=== PATIENT | male | born 1965 | race Hispanic/Latino ===

== ENCOUNTER 2017-08-14 01:31 | Emergency (ER) | payer BC ==
[2017-08-14 02:00] VITALS: BMI 26.5
[2017-08-14 02:02] VITALS: TEMP 98.4
[2017-08-14] MEDS ORDERED: Lidocaine 2% Inj (20ml) INFIL ONE (02:11)
[2017-08-14] MEDS ORDERED: Phenylephrine 10 mg/ml Inj ONE (02:20)
[2017-08-14] MEDS ORDERED: Lidocaine 1% MPF (30 ml) Inj ONE (02:20)
[2017-08-14 04:19] VITALS: BP 165/80; PULSE 83; RESP 18; O2SAT 99
--- NOTE | 2017-08-14 05:04 | ED PDOC ---
HPI: Male Pain Time Seen by Provider: 08/14/17 01:50 Chief Complaint (Nursing): Male Genitourinary Chief Complaint (Provider): Male Genitourinary History Per: Patient History/Exam Limitations: no limitations Onset/Duration Of Symptoms: Hrs Current Symptoms Are (Timing): Still Present Associated Symptoms: denies: Fever, Back Pain Additional Complaint(s): Eddie Charlton is a 51 year old male with a past medical history of erectile dysfunction who is presenting to the ED for evaluation of an erection that has lasted for more than 4 hours from time of presentation. Patient states that at 9 :30 pm he injected Bimix into his penis to have a sustained erection. He states at 10 pm he took 3 tablets of phenylephrine bought at a pharmacy. Patient denies taking any pills for erectile dysfunction and denies any abdominal pain, back pain, or fevers. PMD: none provided Past Medical History Reviewed: Historical Data, Nursing Documentation, Vital Signs Vital Signs: Last Vital Signs Temp 98.4 F 08/14/17 02:00 Pulse 83 08/14/17 04:18 Resp 18 08/14/17 04:18 BP 165/80 H 08/14/17 04:18 Pulse Ox 99 08/14/17 04:18 - Medical History Other PMH: erectile dysfunction - Surgical History Surgical History: No Surg Hx - Family History Family History: States: Unknown Family Hx - Social History Current smoker - smoking cessation education provided: No Alcohol: Occasional Drugs: Denies - Allergies Allergies/Adverse Reactions: Allergies Allergy/AdvReac Type Severity Reaction Status Date / Time No Known Allergies Allergy Verified 08/14/17 02:00 Review of Systems ROS Statement: Except As Marked, All Systems Reviewed And Found Negative Constitutional: Negative for: Fever Gastrointestinal: Negative for: Abdominal Pain Genitourinary Male: Positive for: Other (erection for over 4 hours) Musculoskeletal: Negative for: Back Pain Physical Exam - Reviewed Nursing Documentation Reviewed: Yes Vital Signs Reviewed: Yes - Physical Exam Appears: Positive for: Well, Non-toxic, No Acute Distress Head Exam: Positive for: ATRAUMATIC, NORMAL INSPECTION, NORMOCEPHALIC Gastrointestinal/Abdominal: Positive for: Normal Exam, Soft. Negative for: Tenderness, Mass, Guarding, Rebound Male Genital Exam: Positive for: other ((+) erection with firm corpus cavernosum , sensation intact with normal color ) Back: Positive for: Normal Inspection. Negative for: L CVA Tenderness, R CVA Tenderness, Vertebral Tenderness Neurologic/Psych: Positive for: Alert, Oriented. Negative for: Motor/Sensory Deficits - ECG O2 Sat by Pulse Oximetry: 99 (RA) Pulse Ox Interpretation: Normal Medical Decision Making Medical Decision Making: Time: 4:18 Male with history of erectile dysfunction presenting with self induced erection from injection of Bimix. Provider tried multiple times to reach Dr. Mooney for consultation with no call back. Given length of time of erection and history, patient was most likely having a ischemic cryopism. Patient was given 3 injections of phenylephrine (into corpus cavernosum) of 300 mg followed by 400 mg followed by 400 mg with an interval of 10 minutes between each one. During injection process, he was kept on cardiac monitoring with blood pressure cuff inflating every 5 minutes. Post procedure, patient was watched for fluctuations in blood pressure which resolved spontaneously. After injections, penis detumesced significantly and patient was able to bend penis nearly in half. Patient advised to follow up with his urologist at [facility] tomorrow without fail and advised cessation of injections of Bimix. Upon provider evaluation, patient is medically stable for discharge home. Scribe Attestation: Documented by, Mary Lazaro acting as a scribe for Collin Harrison MD. Provider Scribe Attestation: All medical record entries made by the Scribe were at my direction and personally dictated by me. I have reviewed the chart and agree that the record accurately reflects my personal performance of the history, physical exam, medical decision making, and the department course for this patient. I have also personally directed, reviewed, and agree with the discharge instructions and disposition. Disposition - Clinical Impression Clinical Impression: Priapism - Disposition Referrals: SOPHIA ROJAS MD [Other] Disposition: Routine/Home Disposition Time: 05:00 Condition: IMPROVED Additional Instructions: Please followup with Dr. Bradly Gunter TOMORROW. Instructions: Priapism Forms: [employer] ([place]akut)
[2017-08-14] MEDS ORDERED: Phenylephrine 10 mg/ml Inj IV ONE (06:00)
== END 2017-08-14 04:26 | disposition home or self-care (01) ==
LOC: H.ER 01:31
DX: N48.30 Priapism, unspecified (principal)
CPT/HCPCS: 96374; 99283; J2370